=== PATIENT | male | born 1975 | race Caucasian/White ===

== ENCOUNTER 2023-03-18 13:33 | Outpatient (CLI) | payer BC, SELFPAY | END 2023-03-18 13:34 | disposition home or self-care (01) | LOC: NFLDREF 03-20 14:09 | PROVIDERS: PCP Emergency Medicine; Referring Provider Emergency Medicine; Visit Provider Emergency Medicine | DX: E55.9 Vitamin D deficiency, unspecified (principal); E78.5 Hyperlipidemia, unspecified | CPT/HCPCS: 80053; 80061; 82306 ==

== ENCOUNTER 2023-12-26 17:30 | Emergency (ER) | payer OTHER, SELFPAY ==
[2023-12-26 17:39] VITALS: BP 127/77; PULSE 73; RESP 14; TEMP 36.8; O2SAT 97; BMI 26.1
--- NOTE | 2023-12-26 17:59 | CRLHL7_ITS ---
For Patients: As a result of the Century Cures Act, medical imaging exams and procedure reports are released immediately into your electronic medical record. You may view this report before your referring provider. If you have questions, please contact your health care provider. INDICATION: Lateral malleolus pain COMPARISON: None. TECHNIQUE: Three views left ankle FINDINGS: No fracture. Normal alignment. Joint spaces are normal. No focal bone lesions. Normal bone mineralization. Soft tissue swelling, predominantly of the lateral ankle. No foreign body. IMPRESSION: Lateral predominant left ankle soft tissue swelling. No underlying osseous abnormality seen. Dictated by Sarah Beach MD @ 12/26/2023 6:32:19 PM (Electronically Signed)
--- NOTE | 2023-12-26 18:40 | ED.LOWEXIN ---
HPI - Extremity Injury (Lower) General Date Seen: 12/26/23 Chief Complaint: Extremity Pain/Injury, Lower Stated Complaint: rolled ankle, swelling Time Seen by Provider: 12/26/23 17:32 Source: patient Mode of arrival: ambulatory Limitations: no limitations History of Present Illness HPI Narrative: Patient is a 48-year-old male presenting for left ankle pain. He states he was walking on uneven ground at work when he twisted his ankle. He took Advil for it initially. This happened this morning. Has been able to walk on it since then but states it has been painful and he has been limping around. Denies numbness weakness. No other injuries noted. Denies knee or foot pain. Related Data Previous Rx's ?Medication ?Instructions ?Recorded atorvastatin 20 mg tablet 20 mg PO .HS #90 tabs 03/25/23 omeprazole 40 mg capsule,delayed 40 mg PO QDAY #90 caps 03/25/23 release sertraline 50 mg tablet 50 mg PO QDAY #90 tabs 12/19/23 Allergies Allergy/AdvReac Type Severity Reaction Status Date / Time pollen extracts Allergy Unknown Verified 12/26/23 17:38 Review of Systems Narrative: Pertinent systems reviewed and are negative unless stated in HPI PFSH PFSH Medical History Swelling of right elbow ?M25.421 - Effusion, right elbow (ICD-10) Left hand pain ?M79.642 - Pain in left hand (ICD-10) Family history of early CAD ?Z82.49 - Family history of ischemic heart disease and other diseases of the circulatory system (ICD-10) Encounter for preventive care ?Z00.00 - Encounter for general adult medical examination without abnormal findings (ICD-10) Low libido ?R68.82 - Decreased libido (ICD-10) Screening for colon cancer ?Z12.11 - Encounter for screening for malignant neoplasm of colon (ICD-10) Smoking greater than 30 pack years ?F17.210 - Nicotine dependence, cigarettes, uncomplicated (ICD-10) Forearm pain ?M79.639 - Pain in unspecified forearm (ICD-10) Left wrist pain ?M25.532 - Pain in left wrist (ICD-10) H. pylori infection ?A04.8 - Other specified bacterial intestinal infections (ICD-10) Hyperlipidemia ?E78.5 - Hyperlipidemia, unspecified (ICD-10) Tinea pedis ?B35.3 - Tinea pedis (ICD-10) Seborrheic dermatitis ?L21.9 - Seborrheic dermatitis, unspecified (ICD-10) Surgical History H/O lumbar sympathectomy ?Z98.890 - Other specified postprocedural states (ICD-10) History of vasectomy ?Z98.52 - Vasectomy status (ICD-10) History of uvulopalatopharyngoplasty ?Z98.890 - Other specified postprocedural states (ICD-10) Family History Father Diabetes Oral cancer Coronary artery disease Sister Ovarian cancer Other No family history of colorectal cancer Social History Narrative: Does not use illicit drugs Rarely consumes alcohol Smoker Smoking Status: Heavy tobacco smoker What tobacco products do you use: cigarettes How often do you have a drink containing alcohol: never AUDIT-C Alcohol total score: 0 Non-prescribed substance use: denies use Little interest or pleasure in doing things: not at all Feeling down, depressed, or hopeless: not at all Exam Narrative: Exam Narrative: Const: Well-nourished, Well-developed, in mild distress Eyes: PERRL, no conjunctival injection, and symmetrical lids HENT: Atraumatic external nose and ears. Moist mucous membranes. Removed CVS: Dorsalis pedis pulse 2 +bilaterally MSK:Extremities w/o deformity, decreased range of motion at ankle secondary to pain. Normal range of motion to the toes and knee on left leg. Swelling noted to the lateral malleolus with tenderness to the left lateral malleolus. No tenderness noted to the rest the leg Skin: Warm, Dry. No rashes or lesions. Neuro: Normal Muscle tone, No focal neurological deficits. Psych: Awake, Alert, & Oriented x3. Appropriate mood and affect. Const: Vital Signs, click to edit/add: Vital Signs - 24 hr 12/26/23 17:39 Temperature 98.2 F Pulse Rate [Pulse Oximeter] 73 Respiratory Rate 14 Blood Pressure [Ri ght Upper Arm] 127/77 Pulse Oximetry 97 Oxygen Delivery Me thod Room Air Course Vital Signs Vital signs: Initial Vital Signs Temperature 98.2 F 12/26/23 17:39 Temperature Source Temporal Artery Scan 12/26/23 17:39 Pulse Rate 73 12/26/23 17:39 Pulse Rhythm Regular 12/26/23 17:39 Respiratory Rate 14 12/26/23 17:39 Blood Pressure 127/77 12/26/23 17:39 Blood Pressure Mean 93 12/26/23 17:39 Blood Pressure Position Sitting 12/26/23 17:39 Pulse Oximetry 97 12/26/23 17:39 Oxygen Delivery Method Room Air 12/26/23 17:39 Vital Signs Temperature 98.2 F 12/26/23 17:39 Pulse Rate 73 12/26/23 17:39 Respiratory Rate 14 12/26/23 17:39 Blood Pressure 127/77 12/26/23 17:39 Pulse Oximetry 97 12/26/23 17:39 Oxygen Delivery Method Room Air 12/26/23 17:39 Temperature 98.2 F 12/26/23 17:39 Pulse Rate 73 12/26/23 17:39 Respiratory Rate 14 12/26/23 17:39 Blood Pressure 127/77 12/26/23 17:39 Pulse Oximetry 97 12/26/23 17:39 Oxygen Delivery Method Room Air 12/26/23 17:39 MDM - Extremity Injury (Lower) MDM Narrative Medical decision making narrative: Patient is a 48-year-old male presenting for left ankle pain. He is neurovascular intact at this time. Will order x-rays to look for signs fracture. X-rays reviewed by myself and the radiologist showing no concerning findings. This is likely a ankle sprain and he will be discharged home. Was offered Lb wrap but he declined. Imaging Data Left ankle x-ray: Attestation: I have reviewed the pertinent imaging results. Radiologist's impression: Lateral predominant left ankle soft tissue swelling. No underlying osseous abnormality seen. Dictated by Sarah Beach MD @ 12/26/2023 6:32:19 PM Discharge Plan Discharge Clinical Impression: Ankle sprain and strain Patient Disposition: Home, Self-Care Condition: Stable Instructions: Ankle Sprain (DC) Additional Instructions: Take Tylenol and ibuprofen for pain. You walk on the ankle as tolerated. Return for any new or worsening symptoms. Prescriptions: No Action omeprazole 40 mg capsule,delayed release(DR/EC) 40 mg PO QDAY Qty: 90 3RF atorvastatin 20 mg tablet 20 mg PO .HS Qty: 90 3RF sertraline 50 mg tablet 50 mg PO QDAY Qty: 90 1RF Follow Up/Referrals: Екатерина Lopez MD [Primary Care Provider] - Stand Alone Forms: [employer] Info Instructions
[2023-12-26 18:48] VITALS: BP 127/77; PULSE 73; RESP 14; TEMP 36.8
== END 2023-12-26 18:49 | disposition home or self-care (01) ==
PROVIDERS: Emergency Provider Student in an Organized Health Care Education/Training Program; PCP Emergency Medicine
DX: S96.912A Strain of unspecified muscle and tendon at ankle and foot level, left foot, initial encounter (principal); X50.1XXA Overexertion from prolonged static or awkward postures, initial encounter
CPT/HCPCS: 73610; 99282; 99283

== ENCOUNTER 2024-06-01 08:37 | Outpatient (CLI) | payer BC, SELFPAY | END 2024-06-01 08:38 | disposition home or self-care (01) | LOC: LKVREF 08:38 | PROVIDERS: PCP Emergency Medicine; Visit Provider Emergency Medicine | DX: Z00.00 Encounter for general adult medical examination without abnormal findings (principal); E78.2 Mixed hyperlipidemia; K21.9 Gastro-esophageal reflux disease without esophagitis; E55.9 Vitamin D deficiency, unspecified; R68.82 Decreased libido; F32.A Depression, unspecified; Z12.5 Encounter for screening for malignant neoplasm of prostate | CPT/HCPCS: 80048; 80061; 82607; G0103 ==

== ENCOUNTER 2024-06-28 09:54 | Outpatient (CLI) | payer BC, SELFPAY ==
--- NOTE | 2024-06-28 11:23 | W.ANESCHARGE ---
Anesthesia Charges Start Date/Time Anesthesia Start Date: 06/28/24 Anesthesia Start Time: 10:47 Stop Date/Time Anesthesia Stop Date: 06/28/24 Anesthesia Stop Time: 11:19
== END 2024-06-28 09:55 | disposition home or self-care (01) ==
LOC: OP CLINIC 09:54
PROVIDERS: PCP Emergency Medicine; Visit Provider Internal Medicine
DX: Z12.11 Encounter for screening for malignant neoplasm of colon (principal); D12.3 Benign neoplasm of transverse colon; D12.5 Benign neoplasm of sigmoid colon; D12.8 Benign neoplasm of rectum
CPT/HCPCS: 00811; 45380; 45385; 88305; J2704

== ENCOUNTER 2025-05-14 17:14 | Emergency (ER) | payer BC, SELFPAY ==
--- OUTSIDE RECORDS SUMMARY | 2025-05-14 17:16 | XMS_ITS | Clinical Summary ---
Author Organization [email or web address] [facility] Address [facility] [place] [address] Care Team Providers Care Wet Process Miller Head Assistant Name Role Phone Pcp, No Primary Care Provider Unavailabl e Allergies No known active allergies Medications omeprazole (PRILOSEC) 20 mg Delayed-Release capsule Take 1 capsule by mouth once daily before a meal. 0 4 Active diphenhydrAMINE (BENADRYL) 25 mg capsule Take 1 capsule by mouth every 4 hours if needed. 0 4 Active cholecalciferol (VITAMIN D-3) 2,000 unit capsule Take 1 capsule by mouth once daily. 0 4 Active hyoscyamine sublingual (LEVSIN SL) 0.[address] 1-2 tablets under the tongue every 4 hours if needed. 120 tablet 1 4 Active fexofenadine (JACQUELIN) 180 mg tablet Take 180 mg by mouth once daily with a meal. Do not crush or chew. Active sertraline (ZOLOFT) 25 mg tablet Take 25 mg by mouth once daily. Active atorvastatin (LIPITOR) 20 mg tablet Take 20 mg by mouth once daily. Active azelastine 137 mcg/actuation (ASTELIN) nasal sprayIndications :Allergic rhinitis, unspecified seasonality, unspecified trigger Inhale 1 [place] into affected nostril(s) two times daily. 30 mL 11 5 Active montelukast 10 mg tabletIndication s:Allergic rhinitis, unspecified seasonality, unspecified trigger Take 1 Tablet (10 mg) by mouth at bedtime. 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 Gender Identity Not on file Sexual Orientation Not on file Obstetrics History Last Filed Vital Signs Vital Sign Reading Time Taken Comments Blood Pressure 130/77 11/23/2024 3:45 PM CDT Pulse 89 11/23/2024 3:45 PM CDT Temperature 37.1 C (98.7 F) 11/23/2024 3:45 PM CDT Respiratory Rate 20 11/23/2024 3:45 PM CDT Oxygen Saturation 96% 11/23/2024 3:45 PM CDT Inhaled Oxygen Concentration - - Weight 104.9 kg (231 lb 3.2 oz) 025 10:55 AM ENGINEERING ANALYST Height 194 cm (6' 4.38) 09/13/2024 10: 55 AM ENGINEERING ANALYST Body Mass Index 27.86 09/13/2024 10:55 AM ENGINEERING ANALYST Plan of Treatment Health Maintenance Due Date Last Done Comments Tetanus booster 1988 Depression screening for age 12+ 1989 HIV for age 15-65 1992 Hepatitis C screening for age 18-79 12/19/1995 Hepatitis B series for 19+ ( 1 of 3 - 19+ 3-dose series) 1996 Pneumococcal series for age 6-49 (1 of 2 - PCV) 1996 Colonoscopy through age 75 2022 Lipids for age 45-75 2022 COVID-19 vaccine series (3 - 2024- season) 2025 01/13/2021, 12/17/2020 Influenza Vaccine (#1) 2025 BMI (ht and wt on same day) for age 18+ 09/13/2025 0 09/13/2024 RSV vaccine for adults or pr egnancy (1 - 1-dose 75+ series) 2052 Insurance [facility] Care Teams Wet Process Miller Head Assistant Relationship Specialty Start Date End Date Pcp, No . PCP - General 08/17/24
[2025-05-14 17:24] VITALS: BP 132/84; PULSE 79; RESP 16; TEMP 36.6; O2SAT 96; BMI 28.2
--- NOTE | 2025-05-14 17:50 | ED.GENADULT ---
HPI - General Adult General Chief complaint: Extremity Pain/Injury, Upper Stated complaint: Left Thumb Nail Puncture Time Seen by Provider: 05/14/25 17:21 Source: patient Mode of arrival: ambulatory Limitations: no limitations History of Present Illness HPI narrative: 49-year-old male presenting today with a drill bit puncture wound to the distal thumb. This happened about 3 hours ago. Tetanus shot updated in 2018. Related Data Previous Rx's ?Medication ?Instructions ?Recorded atorvastatin 20 mg tablet 20 mg PO .HS #90 tabs 06/01/24 omeprazole 40 mg capsule,delayed 40 mg PO QDAY #90 caps 06/01/24 release sertraline 50 mg tablet 50 mg PO QDAY #90 tabs 06/01/24 Allergies Allergy/AdvReac Type Severity Reaction Status Date / Time pollen extracts Allergy Unknown Verified 05/14/25 17:23 Review of Systems Status of ROS: Reports: 6 or more systems reviewed and unremarkable except as noted in History and below [facility] Medical History Swelling of right elbow ?M25.421 - Effusion, right elbow (ICD-10) Left hand pain ?M79.642 - Pain in left hand (ICD-10) Family history of early CAD ?Z82.49 - Family history of ischemic heart disease and other diseases of the circulatory system (ICD-10) Encounter for preventive care ?Z00.00 - Encounter for general adult medical examination without abnormal findings (ICD-10) Low libido ?R68.82 - Decreased libido (ICD-10) Screening for colon cancer ?Z12.11 - Encounter for screening for malignant neoplasm of colon (ICD-10) Smoking greater than 30 pack years ?F17.210 - Nicotine dependence, cigarettes, uncomplicated (ICD-10) Forearm pain ?M79.639 - Pain in unspecified forearm (ICD-10) Left wrist pain ?M25.532 - Pain in left wrist (ICD-10) H. pylori infection ?A04.8 - Other specified bacterial intestinal infections (ICD-10) Hyperlipidemia ?E78.5 - Hyperlipidemia, unspecified (ICD-10) Tinea pedis ?B35.3 - Tinea pedis (ICD-10) Seborrheic dermatitis ?L21.9 - Seborrheic dermatitis, unspecified (ICD-10) Surgical History H/O lumbar sympathectomy ?Z98.890 - Other specified postprocedural states (ICD-10) History of vasectomy ?Z98.52 - Vasectomy status (ICD-10) History of uvulopalatopharyngoplasty ?Z98.890 - Other specified postprocedural states (ICD-10) Family History Father Diabetes Oral cancer Coronary artery disease Sister Ovarian cancer Other No family history of colorectal cancer Social History Narrative: Does not use illicit drugs Rarely consumes alcohol Smoker Smoking Status: Heavy tobacco smoker What tobacco products do you use: cigarettes How often do you have a drink containing alcohol: never AUDIT-C Alcohol total score: 0 Non-prescribed substance use: denies use Exam Narrative: Exam Narrative: Well-nourished well-developed patient in no acute distress. Alert and oriented. Answers questions appropriately. Mood and affect are appropriate. Thoughts are goal oriented and rational. No tangential or magical thinking noted. Patient speaks in full sentences without needing to catch his breath. Extremities: Patient has S very small puncture wound at the base of the medial thumb nail. Small crack in the nail surrounding the puncture wound. There is no subungual hematoma. He has no tenderness to palpation of the tip of the thumb or the remainder of the nail bed. Const: Vital Signs, click to edit/add: Vital Signs - 24 hr 05/14/25 17:24 Temperature 97.9 F Pulse Rate [Pulse Oximeter] 79 Respiratory Rate 16 Blood Pressure [Ri ght Upper Arm] 132/84 Pulse Oximetry 96 Oxygen Delivery Me thod Room Air Course Course ED Course: Finger was soaked, cleaned and dressed. Vital Signs Vital signs: Initial Vital Signs Temperature 97.9 F 05/14/25 17:24 Temperature Source Temporal Artery Scan 05/14/25 17:24 Pulse Rate 79 05/14/25 17:24 Respiratory Rate 16 05/14/25 17:24 Blood Pressure 132/84 05/14/25 17:24 Blood Pressure Mean 100 05/14/25 17:24 Blood Pressure Position Sitting 05/14/25 17:24 Pulse Oximetry 96 05/14/25 17:24 Oxygen Delivery Method Room Air 05/14/25 17:24 Vital Signs Temperature 97.9 F 05/14/25 17:24 Pulse Rate 79 05/14/25 17:24 Respiratory Rate 16 05/14/25 17:24 Blood Pressure 132/84 05/14/25 17:24 Pulse Oximetry 96 05/14/25 17:24 Oxygen Delivery Method Room Air 05/14/25 17:24 Temperature 97.9 F 05/14/25 17:24 Pulse Rate 79 05/14/25 17:24 Respiratory Rate 16 05/14/25 17:24 Blood Pressure 132/84 05/14/25 17:24 Pulse Oximetry 96 05/14/25 17:24 Oxygen Delivery Method Room Air 05/14/25 17:24 Medical Decision Making MDM Narrative Medical decision making narrative: 49-year-old male with puncture wound to the nail bed. We discussed pain management, wound hygiene and signs and symptoms of infection. Discharge Plan Discharge Clinical Impression: Puncture wound Patient Disposition: Home, Self-Care Condition: Stable Additional Instructions: Keep wound clean and dry. Watch for signs and symptoms of infection including increasing redness of the area, purulent drainage, or fever. If this occurs follow-up right away with your doctor or return to the ER. Keep wound covered during work. Prescriptions: No Action sertraline 50 mg tablet 50 mg PO QDAY Qty: 90 3RF atorvastatin 20 mg tablet 20 mg PO .HS Qty: 90 3RF omeprazole 40 mg capsule,delayed release(DR/EC) 40 mg PO QDAY Qty: 90 3RF Follow Up/Referrals: Kelsea Landaverde, GIFT MANAGER [Primary Care Provider, Family Practice] Stand Alone Forms: [employer] Info Instructions
== END 2025-05-14 18:18 | disposition home or self-care (01) ==
LOC: ED 18:12
PROVIDERS: Emergency Provider Family Medicine; PCP Nurse Practitioner Family
DX: S61.132A Puncture wound without foreign body of left thumb with damage to nail, initial encounter (principal); W29.8XXA Contact with other powered hand tools and household machinery, initial encounter
CPT/HCPCS: 99283